=== PATIENT | male | born 1985 | race Caucasian/White ===

== ENCOUNTER 2019-04-05 21:14 | Emergency (ER) | payer OTHER ==
[~2019-04-05] VITALS: Ht 188 cm; Wt 114.5 kg
[2019-04-05 21:29] VITALS: BP 140/83; Ht 188 cm; Wt 114.5 kg
== END 2019-04-05 22:20 | disposition home or self-care (01) ==
LOC: ED 21:14
DX: S40.851A Superficial foreign body of right upper arm, initial encounter (principal); X58.XXXA Exposure to other specified factors, initial encounter; Y93.89 Activity, other specified; Y92.89 Other specified places as the place of occurrence of the external cause; Y99.8 Other external cause status